=== PATIENT | male | born 1970 | race Caucasian/White ===

== ENCOUNTER 2022-08-25 19:34 | Emergency (ER) | payer BC ==
[~2022-08-25] VITALS: Ht 182.9 cm; Wt 81.6 kg
[2022-08-25 20:24] VITALS: O2SAT 97
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
[2022-08-25] MEDS ORDERED: IBUPROFEN 400 MG TABLET PO ONE (21:00)
--- NOTE | 2022-08-25 21:00 | NUR ---
Patient declines Ibuprofin at this time.
--- NOTE | 2022-08-25 21:09 | NUR ---
Patient to CT via & asthma educator.
--- NOTE | 2022-08-25 21:13 | NUR ---
Patient return to room [address]
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
== END 2022-08-25 22:22 | disposition home or self-care (01) ==
LOC: ER 19:34
DX: S02.2XXA Fracture of nasal bones, initial encounter for closed fracture (principal); X58.XXXA Exposure to other specified factors, initial encounter; Y93.89 Activity, other specified; Y92.89 Other specified places as the place of occurrence of the external cause; Y99.8 Other external cause status
CPT/HCPCS: 70486; A4663